=== PATIENT | female | born 1930 | race Two or more races ===

== ENCOUNTER 2017-09-17 12:22 | Emergency (ER) | payer SELFPAY ==
[2017-09-17 12:33] VITALS: RESP 18
--- NOTE | 2017-09-17 13:25 | CT ---
EXAMINATION TYPE: CT brain wo con DATE OF EXAM: 09/17/2017 COMPARISON: NONE HISTORY: 87-year-old female with fall, hit left forehead TECHNIQUE: Examination was done in axial plane without intravenous contrast. Coronal and sagittal r econstructions performed. CT DLP: 1040 mGycm Automated exposure control for dose reduction was used. FINDINGS: There is no evidence of acute intracranial hemorrhage, acute ischemic changes, mass, mass-effect, or extra-axial fluid collection. There is no effacement of cerebral sulci or basal subarachnoid cister ns. There is no hydrocephalus. There is no midline shift. Tripathi-white matter distinction is preserv ed. Mild generalized supratentorial volume loss. Mild to moderate patchy periventricular and deep white m atter hypodensities suggest changes of chronic small vessel ischemic disease. There is some focal soft tissue contusion along the left lateral supraorbital region and tiny foci of soft tissue air suggesting laceration. The intraorbital fat is atrophic. Paranasal sinuses and mastoid air cells well pneumatized. No calvar ial fracture. IMPRESSION: 1. Small laceration and soft tissue contusion along the left lateral supraorbital region. No underlyi ng calvarial fracture. No acute intracranial abnormality seen. 2. Mild atrophy and changes of chronic small vessel ischemic disease.
--- NOTE | 2017-09-17 13:27 | ED ---
General Adult HPI <LucasLes - Last Filed: 09/17/17 13:46> - General Source: patient, RN notes reviewed Mode of arrival: ambulatory Limitations: no limitations <Link Doss - Last Filed: 09/17/17 14:08> - General Chief complaint: Fall Stated complaint: Fell Time Seen by Provider: 09/17/17 12:34 - History of Present Illness Initial comments: 87-year-old female says the emergency department for a chief complaint of fall. Patient states she was getting out of the car about an hour ago when she tripped on the curb and hit her head on the pavement. Patient also fell onto her knee and has a scrape on the back of her wrist. Patient currently denies headache or visual changes. Patient denies nausea or vomiting. Patient denies loss of consciousness at the time of fall. Patient denies any confusion at this time and family member states she is acting normally. Patient denies any pain in the left knee or the left wrist. She states she knows she does not need x-rays as her knee does not hurt at all. Patient denies any other complaints at this time including shortness of breath, chest pain, abdominal pain. Patient states her tetanus is up-to-date because she travels often and make sure her shots are up-to-date. (Link Doss) - Related Data Home Medications Medication Instructions Recorded Confirmed No Known Home Medications [No 09/17/17 09/17/17 Known Home Medications] Allergies Allergy/AdvReac Type Severity Reaction Status Date / Time No Known Allergies Allergy Verified 09/17/17 12:45 Review of Systems ROS Other: All systems not noted in ROS Statement are negative. <Les Zavala - Last Filed: 09/17/17 13:46> ROS Other: All systems not noted in ROS Statement are negative. <Link Doss - Last Filed: 09/17/17 14:08> ROS Statement: Those systems with pertinent positive or pertinent negative responses have been documented in the HPI. Past Medical History Past Medical History: No Reported History History of Any Multi-Drug Resistant Organisms: None Reported Past Surgical History: No Surgical Hx Reported Past Psychological History: No Psychological Hx Reported Smoking Status: Never smoker Past Alcohol Use History: None Reported Past Drug Use History: None Reported <Link Doss - Last Filed: 09/17/17 14:08> General Exam Limitations: no limitations Head exam: Present: other (There is a small contusion and 0.5 cm laceration on the left frontal scalp.) Eye exam: Present: normal appearance, PERRL, EOMI. Absent: scleral icterus, conjunctival injection, periorbital swelling Pupils: Present: normal accommodation Neck exam: Present: normal inspection, full ROM. Absent: tenderness, meningismus, lymphadenopathy Respiratory exam: Present: normal lung sounds bilaterally. Absent: respiratory distress Cardiovascular Exam: Present: regular rate, normal rhythm, normal heart sounds Extremities exam: Present: full ROM, normal capillary refill, other (Capillary refill less than 2 seconds in upper and lower extremities. Patient has full sensation in upper and lower extremities. Patient has no tenderness in the left knee and has full range of motion of the left knee. Patient has no tenderness in the left wrist or anatomical snuffbox and has full range of motion of the left wrist. Neurovascular intact in the left upper and lower extremity.). Absent: tenderness, pedal edema, joint swelling, calf tenderness Neurological exam: Present: alert, oriented X3, CN II-XII intact Psychiatric exam: Present: normal affect, normal mood <Link Doss P - Last Filed: 09/17/17 14:08> Course <Les Zavala - Last Filed: 09/17/17 13:46> <Link Doss P - Last Filed: 09/17/17 14:08> Vital Signs 09/17/17 12:30 Temperature 97.4 F L Pulse Rate 69 Respiratory 18 Rate Blood Pressure 154/70 O2 Sat by Pulse 99 Oximetry - Reevaluation(s) Reevaluation #1: 09/17/17 13:46 I did personally do a [id number] evaluation the patient did discuss findings with her and her family. Patient does have a left for had abrasion and contusion. The exam is otherwise unremarkable she has a [place] Coma Scale of 15. I do agree with the assessment and plan. (Les Zavala) Medical Decision Making <Les Zavala - Last Filed: 09/17/17 13:46> <Link Doss - Last Filed: 09/17/17 14:08> - Medical Decision Making 87-year-old female sent to the emergency department for chief complaint of fall. Patient fell about an hour ago when she was getting out of the car and tripped on the curb. Patient hit her head on the concrete. Patient denies any loss of consciousness or headache at this time. No blood thinners. CT was obtained which showed No underlying fractures and no acute intracranial abnormalities. Patient has a small skin tear on the left knee which was covered with bacitracin and gauze. Patient also has a small 0.5 cm skin tear on the dorsal left wrist which was also covered with bacitracin and gauze. Patient has a small 0.5 cm laceration on her forehead which was Steri-Stripped per patient's request. Patient will take Tylenol for pain relief. Patient will return to the emergency department if she begins to develop headaches, visual changes, or nausea and vomiting. She will be monitored by her family member. She will follow up with primary care in 1-2 days. (Link Doss) Disposition <Les Zavala - Last Filed: 09/17/17 13:46> Time of Disposition: 14:08 <Link Doss - Last Filed: 09/17/17 14:08> Clinical Impression: Fall Disposition: HOME SELF-CARE Condition: Good Instructions: Concussion (ED), Fall Prevention for Older Adults (ED) Additional Instructions: Please return to the emergency department if you began to develop severe headache, visual changes, or vomiting. Please return if you become confused or are difficult to wake. Please take Tylenol for pain relief. Please follow-up with primary care provider in one to 2 days. Referrals: None,Stated [Primary Care Provider] - 1-2 days
[2017-09-17] MEDS ORDERED: TOPICAL SKIN ADHESIVE 1 EACH AMP TOPICAL ONE (13:36)
[2017-09-17 14:23] VITALS: BP 148/78; PULSE 67; TEMP 97.7
== END 2017-09-17 14:29 | disposition home or self-care (01) ==
LOC: EC 12:22
DX: S01.81XA Laceration without foreign body of other part of head, initial encounter (principal); S81.012A Laceration without foreign body, left knee, initial encounter; S61.512A Laceration without foreign body of left wrist, initial encounter; R40.2412 Glasgow coma scale score 13-15, at arrival to emergency department; W01.198A Fall on same level from slipping, tripping and stumbling with subsequent striking against other object, initial encounter
CPT/HCPCS: 70450; 99283